=== PATIENT | male | born 1955 | race Two or more races ===

== ENCOUNTER 2019-03-08 13:12 | Outpatient (CLI) | payer MEDICARE ==
[~2019-03-08] VITALS: Ht 170.2 cm; Wt 87.1 kg
[2019-03-08 15:23] VITALS: BP 139/89
[2019-03-08] MEDS ORDERED: ATORVASTATIN CA10 MG ORAL (15:23)
[2019-03-08] MEDS ORDERED: DIOVAN80 MG ORAL (15:23)
[2019-03-08] MEDS ORDERED: ASPIRIN EC81 MG ORAL (15:23)
--- NOTE | 2019-03-08 21:00 | Consultation ---
DATE OF CONSULTATION: 03/08/2019 GASTROENTEROLOGY CONSULTATION CONSULTING PHYSICIAN: Nam De La Vega M.D. REFERRING PHYSICIAN: Helena Sol M.D. CHIEF COMPLAINT: GERD, history of colonic polyps. HISTORY OF PRESENT ILLNESS: This is a very pleasant 63-year-old [place] male with past history of chronic GERD. Apparently he only takes right now [id number] medication for his GERD and he is not getting any symptoms relief. The patient also has chronic cough. He was referred to us for evaluation for possible endoscopy, also has history of colonic polyps. Last colonoscopy was over 5 years ago, so the patient was referred for also colonoscopy. PAST MEDICAL HISTORY: 1. Hypertension. 2. . 3. GERD. 4. Chronic cough. PAST SURGICAL HISTORY: Back surgery. MEDICATIONS: Aspirin, Diovan, Lipitor. FAMILY HISTORY: Father had coronary artery disease. Mother had stroke. Brother had coronary artery disease. SOCIAL HISTORY: The patient drinks socially, quit tobacco 20 years ago. ALLERGIES: No known drug allergies. MEDICATIONS: Please see medication reconciliation list. REVIEW OF SYSTEMS: A 10-point review of systems was performed and pertinent positives in HPI. PHYSICAL EXAMINATION: VITAL SIGNS: Temperature 98.2, blood pressure 139/89, pulse is 89, respirations 20. HEENT: Normocephalic and atraumatic. Sclerae anicteric. NECK: Supple. No evidence of obvious lymphadenopathy. CARDIOVASCULAR: Regular rate and rhythm. Plus S1 and S2. No obvious murmur. LUNGS: Decreased breath sounds bilaterally. ABDOMEN: Positive bowel sounds. Soft and nontender. No rebound. No guarding. No peritoneal sign. EXTREMITIES: No cyanosis. No clubbing. No edema ASSESSMENT AND PLAN: This is a 63-year-old male with chronic GERD, chronic cough, history of colonic polyps needs endoscopy and colonoscopy. The patient was given instruction for colonoscopy and the prep. All of his questions were answered. The risks and benefits of the procedure were explained to him and he agreed. We will plan for this coming Friday. I want to thank Dr. Helena Sol for this kind referral. Nam De La Vega M.D. DR: JOHANNY JOB#: [id number] CC: Helena Sol M.D.; Fax#: [phone]
== END 2019-03-08 15:12 | disposition home or self-care (01) ==
LOC: PAN 13:12
DX: K21.9 Gastro-esophageal reflux disease without esophagitis (principal); I10 Essential (primary) hypertension; Z86.010 Personal history of colon polyps; Z79.82 Long term (current) use of aspirin; Z79.899 Other long term (current) drug therapy; R05 Cough
CPT/HCPCS: 99202

== ENCOUNTER 2019-03-10 08:20 | Day surgery (SDC) | payer MEDICARE, BC ==
[2019-03-10] VITALS (9 sets, daily range): BP systolic 131–147; BP diastolic 75–90
[~2019-03-10] VITALS: Ht 170.2 cm; Wt 83.5 kg
--- NOTE | 2019-03-10 08:17 | Anethesia Preoperative Eval ---
Anesthesia Pre-op PMH/ROS General Date of Evaluation: Mar 10, 2019 Time of Evaluation: 08:16 Anesthesiologist: kate ASA Score: ASA 3 Mallampati Score Class I : Soft palate, uvula, fauces, pillars visible Class II: Soft palate, uvula, fauces visible Class III: Soft palate, base of uvula visible Class IV: Only hard plate visible Mallampati Classification: Class II Surgeon: polo Diagnosis: gerd, colon screening Surgical Procedure: egd/colonoscopy Anesthesia History: none Social History: alcohol use Family History: no anesthesia problems Allergies: Coded Allergies: No Known Allergies (Unverified , 03/08/19) Medications: see eMAR Patient NPO?: Yes Past Medical History Cardiovascular: Reports: HTN, other - hypercholesterolemia Musculoskeletal/Integumentary: Reports: DDD Anesthesia Pre-op Phys. Exam Physician Exam Last Vital Signs Date Time Temp Pulse Resp B/P (MAP) Pulse Ox O2 Delivery O2 Flow Rate FiO2 03/10/19 08:58 97.1 60 20 135/83 95 Room Air Constitutional: NAD Neurologic: CN 2-12 intact Cardiovascular: RRR Respiratory: CTA Gastrointestinal: S/NT/ND Airway Exam Mallampati Score: Class II MO: limited Neck: flexible TMD: 2fb ROM: limited Anesthesia Pre-op A/P Risk Assessment & Plan Assessment: asa3 Plan: mac Status Change Before Surgery: No Pre-Antibiotics Drug: Aisha Palmer MD Mar 10, 2019 08:17
[~2019-03-10 08:20] MED LIST: ASPIRIN EC81 MG ORAL; ATORVASTATIN CA10 MG ORAL; Atropine Sulfate 0.4mg/ml inj IVP PRN; DIOVAN80 MG ORAL; DiphenhydrAMINE 50mg/ml Inj IVP PRN; Midazolam 2mg/2ml Inj IVP PRN; fentaNYL 100 mcg/2 mL IV PRN
--- NOTE | 2019-03-10 09:40 | Pre-Procedure Note/Attestation ---
Pre-Procedure Note/Attestation Complete Prior to Procedure Planned Procedure: not applicable Procedure Narrative: esophagogastroduodenoscopy and colonoscopy Indications for Procedure Pre-Operative Diagnosis: screening colon, GERD Attestation I attest that I discussed the nature of the procedure; its benefits; risks and complications; and alternatives (and the risks and benefits of such alternatives ), prior to the procedure, with the patient (or the patient's legal in store marketing representative). I attest that, if there was a reasonable possibility of needing a blood transfusion, the patient (or the patient's legal in store marketing representative) was given the [facility] standardized written summary, pursuant to the Oseas Cullison Blood Safety Act ([place] Health and Safety Code # 1645, as amended). I attest that I re-evaluated the patient just prior to the surgery and that there has been no change in the patient's H&P, except as documented below: Nam De La Vega MD Mar 10, 2019 09:40
--- NOTE | 2019-03-10 09:41 | Short Stay Surgery H&P ---
History of Present Illness History of Present Illness Chief Complaint see recent office note HPI Parveen Dougherty is a 63 year old male who was admitted on for Gerd, Colon Screening Patient History Allergies: Coded Allergies: No Known Allergies (Unverified , 03/08/19) Medication History Scheduled Aspirin Ec* (Aspirin Ec*), 81 MG ORAL DAILY, (Reported) Atorvastatin Calcium* (Lipitor*), Unknown Dose ORAL BEDTIME, (Reported) Valsartan (Diovan), Unknown Dose ORAL DAILY, (Reported) Physical Exam Vital Signs Last Vital Signs Date Time Temp Pulse Resp B/P (MAP) Pulse Ox O2 Delivery O2 Flow Rate FiO2 03/10/19 08:58 97.1 60 20 135/83 95 Room Air Plan Attestation Are the patient's medical conditions optimized for surgery? Nam De La Vega MD Mar 10, 2019 09:41
[2019-03-10] MEDS ORDERED: Lidocaine 1% MPF 10mg/ml 5ml ONE (10:00)
[2019-03-10] MEDS ORDERED: Propofol 200mg/20ml IV ONE (10:00)
--- NOTE | 2019-03-10 10:20 | Endoscopy Procedure Note ---
Endoscopy Procedure Note General Indication for Procedure: screening colon, GERD Procedures Performed: EGD, colonoscopy Operative Findings/Diagnosis: 2 polyps Specimen: yes Pt Tolerated Procedure Well: Yes Estimated Blood Loss: none Anesthesia Anesthesiologist: kate Anesthesia: MAC Inserted Devices Implant(s) used?: No Quality Quality of Bowel Preparation: Good Did scope reach the cecum?: Yes Was there any complications?: No GI Core Measures 50 yrs or older w/o bx or poly: No 10yrs. F/U recommended: Yes If not recommended, why?: Above average risk 18 years or older w/prev. colo: No Nam De La Vega MD Mar 10, 2019 10:20
--- NOTE | 2019-03-10 10:41 | Immediate Post-Op Evaluation ---
Immediate Post-Op Evalulation Immediate Post-Op Evalulation Procedure: egd/colonoscopy/bx Date of Evaluation: Mar 10, 2019 Time of Evaluation: 10:39 IV Fluids: 350ml 0.9ns Blood Products: none Estimated Blood Loss: negligible Blood Pressure Systolic: 136 Blood Pressure Diastolic: 82 Pulse Rate: 54 Respiratory Rate: 18 O2 Sat by Pulse Oximetry: 100 Temperature (Fahrenheit): 97.1 Pain Score (1-10): 0 Nausea: No Vomiting: No Complications none Patient Status: awake, reacts, patent Hydration Status: adequate Drug: Aisha Palmer MD Mar 10, 2019 10:41
--- NOTE | 2019-03-10 10:42 | 48 Hour Post Anesthesia Eval ---
Post Anesthesia Evaluation Procedure: egd/colonoscopy/bx Date of Evaluation: Mar 10, 2019 Time of Evaluation: 10:41 Blood Pressure Systolic: 133 0: 87 Pulse Rate: 60 Respiratory Rate: 18 Temperature (Fahrenheit): 97.1 O2 Sat by Pulse Oximetry: 100 Airway: patent Nausea: No Vomiting: No Pain Intensity: 0 Hydration Status: adequate Cardiopulmonary Status: stable Mental Status/LOC: patient returned to baseline Post-Anesthesia Complications: none Follow-up care needed: N/A Aisha Lauren MD Mar 10, 2019 10:42
--- NOTE | 2019-03-10 15:28 | Cardiology Report ---
APPROVED REPORT EKG Measurement Heart [id number] Normal sinus rhythm Nonspecific intraventricular conduction delay Borderline ECG
--- NOTE | 2019-03-10 16:30 | Procedure Note ---
DATE OF PROCEDURE: 03/10/2019 SURGEON: Nam De La Vega M.D. PROCEDURE: Upper endoscopy with biopsy and colonoscopy with biopsy. ANESTHESIA: Per Dr. Batres. INSTRUMENT: Olympus adult flexible upper endoscope and colonoscope. INDICATION: Screening colonoscopy evaluation, abdominal pain, GERD. REASON FOR PROCEDURE: The procedure, risks, benefits, and possible consequences, including hemorrhage, aspiration, perforation and infection, and alternative treatments, were explained to the patient/legal guardian by Dr. Nam De La Vega and the patient/legal guardian understood and accepted these risks. PROCEDURE IN DETAIL: After informed consent was obtained and the patient was adequately sedated, Olympus upper endoscope was advanced from mouth into the second portion of the duodenum and retroflexion was performed in the stomach. He had evidence of diffuse gastritis. Random biopsy from antrum and body was obtained to rule out H. pylori infection. Otherwise, the rest of upper endoscopic examination was within normal limits. At this time, the upper endoscope was retrieved and the patient was turned over for colonoscopy. First, rectal exam was performed showed positive for internal hemorrhoids. Then, the scope was advanced from rectum into the cecum then subsequently to terminal ileum. Quality of prep was very good. The patient had two diminutive polyps in the transverse colon, removed with the cold biopsy forceps technique. Otherwise, the rest of the colonoscopy examination grossly looked within normal limits. Retroflexion of rectum showed evidence of small nonbleeding internal hemorrhoids. SUMMARY OF FINDINGS: 1. Gastritis, status post biopsy. 2. Two colonic polyps removed, see above for details. 3. Internal hemorrhoids. RECOMMENDATIONS: 1. Follow path. 2. Repeat colonoscopy in 5 years. Nam De La Vega M.D. DR: NILTON JOB#: [id number] CC:
== END 2019-03-10 11:35 | disposition home or self-care (01) ==
LOC: GAS 08:20
DX: Z12.11 Encounter for screening for malignant neoplasm of colon (principal); K21.9 Gastro-esophageal reflux disease without esophagitis; R10.9 Unspecified abdominal pain; K29.50 Unspecified chronic gastritis without bleeding; K63.5 Polyp of colon; K64.8 Other hemorrhoids; I10 Essential (primary) hypertension; E78.00 Pure hypercholesterolemia, unspecified; M19.90 Unspecified osteoarthritis, unspecified site; B96.81 Helicobacter pylori [H. pylori] as the cause of diseases classified elsewhere; D12.3 Benign neoplasm of transverse colon; Z79.82 Long term (current) use of aspirin; Z79.899 Other long term (current) drug therapy
CPT/HCPCS: 43239; 45380; 93005; J2704; 94003; 94150